=== PATIENT | female | born 1945 | race Caucasian/White ===

== ENCOUNTER 2023-11-25 09:59 | Observation (INO) ==
[2023-11-25 10:21] LABS: ABS Eosinophils 0.2 10^3/uL (0.0-0.5); ABS Lymphocytes 1.7 10^3/uL (1.0-4.8); ABS Monocytes 0.6 10^3/uL (0.0-0.9); ABS Neutrophils 3.9 10^3/uL (1.5-7.6); Eosinophil % 2.7 %; Hematocrit 41.5 % (35-45); Hemoglobin 14.1 g/dL (11.5-14.3); Lymphocyte % 26.3 %; Mean Corpuscular Hemoglobin 30.5 pg (27-33); Mean Corpuscular Volume 89.5 fL (80-97); Mean Platelet Volume 8.4 fL (7.5-11.2); Platelet Count 190 10^3/uL (150-450); Red Blood Count 4.63 10^6/uL (3.63-4.92); Red Cell Distribution Width 13.7 % (12-17); White Blood Count 6.5 10^3/uL (3.8-11.8)
[2023-11-25 10:33] LABS: Activated Partial Thrombo Time 35.5 seconds (26.0-38.0); INR 1.03 (0.83-1.13)
[2023-11-25 11:03] LABS: ALT 20 U/L (7-52); AST 23 U/L (13-39); Albumin 4.5 g/dL (3.2-5.2); Albumin/Globulin Ratio 1.8 (1-3); Alkaline Phosphatase 63 U/L (35-149); Anion Gap 11 mmol/L (2-16); Blood Urea Nitrogen 28 mg/dL (6-24); CO2 Carbon Dioxide 25 mmol/L (22-32); Calcium 10.1 mg/dL (8.6-10.3); Chloride 103 mmol/L (101-111); Cholesterol 145 mg/dL; Creatinine, Serum 0.96 mg/dL (0.51-0.95); Direct Bilirubin 0.1 mg/dL (0.03-0.18); Globulin 2.5 g/dL (2-4); Glucose 103 mg/dL (70-100); HDL Cholesterol 52.8 mg/dL; Indirect Bilirubin 0.5 mg/dL (0.3-1.0); LDL Cholesterol 62 mg/dL; Potassium 4.1 mmol/L (3.5-5.0); Sodium 139 mmol/L (135-145); Total Bilirubin 0.6 mg/dL (0.2-1.0); Triglycerides 149 mg/dL; eGFR CKD-EPI 61.3 (>60)
[2023-11-25 13:10] LABS: Urine Appearance Clear; Urine Bilirubin Negative (Negative); Urine Blood Negative (Negative); Urine Color Colorless; Urine Glucose Negative (Negative); Urine Ketones Negative (Negative); Urine Nitrite Negative (Negative); Urine Protein Negative (Negative); Urine Specific Gravity 1.009 (1.002-1.030); Urine Urobilinogen Negative (Negative)
[2023-11-25 13:43] LABS: TSH Ultra Thyroid Stim Horm 1.02 mcIU/mL (0.34-5.60)
[2023-11-25 13:54] LABS: Vitamin B12 > 1450 pg/mL (180-914)
[2023-11-25 16:08] VITALS: BP 157/80
[2023-11-26] MEDS ORDERED: Cholecalciferol (VIT D3) 1,000 unit TAB PO SCH (09:00)
== END 2023-11-25 14:56 | disposition home or self-care (01) ==
LOC: ED 09:59 → EDHOLD 09:59 → MEDTELE 14:55
PROVIDERS: ADMIT Hospitalist; ATTEND Hospitalist

== ENCOUNTER 2024-10-14 04:50 | Observation (INO) ==
[2024-10-14] MEDS: Iodixanol 320 (CONTRAST) 100 ML SDV IV ONE (05:37)
[2024-10-14 05:41] LABS: ABS Basophils 0.1 10^3/uL (0.0-0.1); ABS Eosinophils 0.2 10^3/uL (0.0-0.5); ABS Lymphocytes 2.1 10^3/uL (1.0-4.8); ABS Monocytes 0.5 10^3/uL (0.0-0.9); ABS Neutrophils 3.2 10^3/uL (1.5-7.6); Eosinophil % 3.7 %; Hematocrit 42.6 % (35-45); Hemoglobin 14.3 g/dL (11.5-14.3); Lymphocyte % 34.5 %; Mean Corpuscular Hemoglobin 30.7 pg (27-33); Mean Corpuscular Hgb Conc 33.5 g/dL (31-36); Mean Corpuscular Volume 91.7 fL (80-97); Mean Platelet Volume 8.5 fL (7.5-11.2); Nucleated Red Blood Cells % 0.1 %/100WBC (0.0-0.8); Platelet Count 177 10^3/uL (150-450); Red Blood Count 4.65 10^6/uL (3.63-4.92); Red Cell Distribution Width 13.5 % (12-17); White Blood Count 6.1 10^3/uL (3.8-11.8)
[2024-10-14 05:55] LABS: Activated Partial Thrombo Time 31.9 seconds (26.0-38.0); INR 0.99 (0.85-1.14)
[2024-10-14 06:31] LABS: Albumin 4.4 g/dL (3.5-5.7); Albumin/Globulin Ratio 2.1 (1-3); Calcium 10.2 mg/dL (8.6-10.3); Creatinine, Serum 1.04 mg/dL (0.51-0.95); Globulin 2.1 g/dL (2-4); HDL Cholesterol 53.1 mg/dL; Indirect Bilirubin 0.7 mg/dL (0.3-1.0); Potassium 4.2 mmol/L (3.5-5.0); Total Bilirubin 0.7 mg/dL (0.2-1.0); Total Protein 6.5 g/dL (6.4-8.9); eGFR CKD-EPI 55.7 (>60)
[2024-10-14] MEDS: Cholecalciferol (VIT D3) 1,000 unit TAB PO SCH (08:35)
[2024-10-14] MEDS: Enoxaparin 40 MG/0.4 ML SYR SUBCUT SCH (08:35)
[2024-10-14] MEDS ORDERED: Cholecalciferol (VIT D3) 1,000 unit TAB PO SCH (09:00)
[2024-10-14] MEDS: Gadoteridol (CONTRAST) 279.3 MG/ML 10 ML IV ONE (11:07)
[2024-10-14 13:04] VITALS: BP 136/80
== END 2024-10-14 15:00 | disposition home or self-care (01) ==
LOC: EDHOLD 04:50 → ED 04:50 → MEDTELE 11:38
PROVIDERS: ADMIT Student in an Organized Health Care Education/Training Program; ATTEND Student in an Organized Health Care Education/Training Program